=== PATIENT | female | born 1995 | race Caucasian/White ===

== ENCOUNTER 2017-01-22 14:14 | Emergency (ER) | payer OTHER ==
[2017-01-22 13:08] LABS: INFLUENZA A NEG (NEG); INFLUENZA B POS (NEG)
[~2017-01-22 14:14] MED LIST: BACTRIM 400-801 TA1 PO; BENZONATATE PO; EFFEXOR; ELIMITE60 G1 TOP; FLEXERIL PO; IBUPROFEN800 MG PO; MOTRIN600 M1 PO; NO MEDICATIONS; PRENATAL1 TA1 PO; ROBITUSSIN A-C S5 ML PO; TOPAMAX; ZOFRAN PO
== END 2017-01-22 14:17 | disposition left against medical advice (07) ==
LOC: SED 14:14
PROVIDERS: Physician Assistant
DX: Z53.21 Procedure and treatment not carried out due to patient leaving prior to being seen by health care provider (principal)
CPT/HCPCS: 87651; 87804